=== PATIENT | female | born 1990 | race Caucasian/White ===

== ENCOUNTER 2017-03-19 06:59 | Day surgery (SDC) | payer BC ==
[~2017-03-19] VITALS: Ht 154.9 cm; Wt 50.0 kg
[~2017-03-19 06:59] MED LIST: CLONIDINE HCL0.1 M1 PO; CLONIDINE HCL0.1 MG PO; ENDOCET 5-3251 EACH PO; FLEXERIL10 MG PO; HYDROCODON-ACE1 EAC7 PO; MOTRIN400 MG PO; MOTRIN600 MG PO; MOTRIN800 MG PO; NOHOMEMEDS; PROBIOTIC1 EAC7 PO; TRAZODONE HCL50 MG PO; VALTREX50 MG/ML PO; XANAX1 MG PO
[2017-03-19 07:19] VITALS: BP 107/57
[2017-03-19 10:26] VITALS: BP 103/68
[2017-03-19 11:03] VITALS: BP 106/65
== END 2017-03-19 11:15 | disposition home or self-care (01) ==
LOC: SDC 06:59
PROC: 0UBC7ZX Excision of Cervix, Via Natural or Artificial Opening, Diagnostic (ICD-10-PCS; principal; 2017-03-19)
DX: N87.0 Mild cervical dysplasia (principal); F41.8 Other specified anxiety disorders; F17.210 Nicotine dependence, cigarettes, uncomplicated
CPT/HCPCS: 84702; 85025; 86900; 86901; 88305; 88307; J0131; J1100; J1885; J2250; J2405; J2765; J3010

== ENCOUNTER 2017-05-03 06:57 | Day surgery (SDC) | payer BC ==
[~2017-05-03] VITALS: Ht 154.9 cm; Wt 50.0 kg
[2017-05-03 07:29] VITALS: BP 103/54
[2017-05-03] MEDS ORDERED: HYDROCODON-ACE1 EAC7 PO (09:50)
[2017-05-03 10:10] VITALS: BP 126/62
[2017-05-03 11:20] VITALS: BP 99/52
== END 2017-05-03 11:20 | disposition home or self-care (01) ==
LOC: SDC 06:57
PROC: 0UBMXZZ Excision of Vulva, External Approach (ICD-10-PCS; principal; 2017-05-03)
DX: N90.60 Unspecified hypertrophy of vulva (principal); F41.9 Anxiety disorder, unspecified; F17.210 Nicotine dependence, cigarettes, uncomplicated; A60.00 Herpesviral infection of urogenital system, unspecified
CPT/HCPCS: 88304; J0131; J1100; J1170; J1885; J2250; J2405; J3010